=== PATIENT | female | born 1995 | race Caucasian/White ===

== ENCOUNTER → 2018-04-07 | Outpatient (CLI) | payer BC ==
--- NOTE | 2018-04-07 21:09 | CT ---
EXAMINATION TYPE: CT abdomen pelvis w con DATE OF EXAM: 04/07/2018 HISTORY: RUQ and Back pain CT DLP: 1721mGycm Automated Exposure Control for Dose Reduction was Utilized. CONTRAST: CT scan of the abdomen and pelvis is performed with oral and with IV Contrast, patient injected with 100 mL of Isovue 300. COMPARISON: FINDINGS: LUNG BASES: No significant abnormality is appreciated. LIVER/GB: Gallbladder is contracted in appearance likely on the basis of recent meal ingestion as the re is contrast and debris filled prominent stomach. PANCREAS: No significant abnormality is seen. SPLEEN: No significant abnormality is seen. ADRENALS: No significant abnormality is seen. KIDNEYS: No significant abnormality is seen. BOWEL: Oral contrast reaches the mid small bowel level making evaluation suboptimal. No suspicious sm all or large bowel dilatation is present. Cecum is somewhat low-lying in the right pelvis. Normal-gretchen earing appendix is seen from base of cecum in the right pelvis. UTERUS/ADNEXA: Anteverted uterus is present. Both ovaries are identified and normal in size. LYMPH NODES: No greater than 1cm abdominal or pelvic lymph nodes are appreciated. OSSEOUS STRUCTURES: No significant abnormality is seen. OTHER: Incidental metallic umbilical ornament. IMPRESSION: No significant acute finding is seen to account for patient's clinical symptoms.
== END ==
LOC: RADCTMAIN 17:06
PROVIDERS: ATTEND Internal Medicine Gastroenterology
DX: R10.10 Upper abdominal pain, unspecified (principal)
CPT/HCPCS: 74177; Q9967

== ENCOUNTER → 2019-11-23 | Outpatient (CLI) | payer BC ==
--- NOTE | 2019-11-23 13:24 | CT ---
EXAMINATION TYPE: CT abdomen wo con DATE OF EXAM: 11/23/2019 COMPARISON: 04/07/2018 HISTORY: 24-year-old female Upper abdominal pain x5 days TECHNIQUE: Contiguous axial scanning of the abdomen without IV contrast. Coronal and sagittal reconst ructions performed. CT DLP: 827.9 mGycm Automated exposure control for dose reduction was used. FINDINGS: Heart normal size without pericardial effusion. Lung bases clear without pleural effusion. Liver borderline in size at 17.1 cm. Otherwise, noncontrast appearance of the liver, gallbladder, adrenal glands, kidneys, and spleen with in normal limits. There is some inflammatory thickening of the body and tail of the pancreas with mild peripancreatic f at stranding. No abnormal fluid collection. Some mild streaky edema tracks down the left retroperiton eum anterior to the left kidney. No dilated small bowel, free fluid, or free air. No mesenteric or retroperitoneal lymphadenopathy. Normal appendix. No significant stool burden. No pericolic inflammatory change. Pelvis not imaged. Bones: No osseous destructive process. IMPRESSION: MILD ACUTE INTERSTITIAL PANCREATITIS INVOLVING THE PANCREATIC BODY AND TAIL. NO INTRAPANCREATIC OR PE RIPANCREATIC FLUID COLLECTION. THE TECHNOLOGIST WILL BE CALLING THE PHYSICIAN'S OFFICE TO ATTEMPT COM MUNICATION OF THE FINDINGS IMMEDIATELY FOLLOWING THE DICTATION.
== END | disposition home or self-care (01) ==
LOC: RADCTMAIN 10:34
PROVIDERS: ATTEND Family Medicine
DX: K85.80 Other acute pancreatitis without necrosis or infection (principal)
CPT/HCPCS: 74150

== ENCOUNTER → 2020-01-16 | Outpatient (CLI) | payer BC ==
[2020-01-17 10:35] LABS: IgG Subclass 3 65.9 mg/dL (11.0-85.0); IgG Subclass 4 72.4 mg/dL (3.0-175.0)
== END | disposition home or self-care (01) ==
LOC: LABWHC1 11:45
PROVIDERS: ATTEND Nurse Practitioner
DX: K85.90 Acute pancreatitis without necrosis or infection, unspecified (principal)
CPT/HCPCS: 36415; 82787; 84478; 86038

== ENCOUNTER → 2020-06-25 | Outpatient (CLI) | payer BC ==
--- NOTE | 2020-06-26 07:46 | MR ---
EXAMINATION TYPE: MR MRCP DATE OF EXAM: 06/25/2020 COMPARISON: CT abdomen November 23, [address] April 07, 2018. HISTORY: RUQ pain, pancreatitis Standard multiplanar, multisequence MRI departmental protocol Multiplanar, multisequence images of the abdomen were acquired. Thin and thick slice MRCP imaging per formed on the MRI scanner. FINDINGS: Liver/gallbladder/pancreas/biliary system: Gallbladder shows no intraluminal gallstones and appears u nremarkable. Liver remains normal in size. No concerning solid or cystic intrahepatic masses are iden tified. Pancreas shows overall marked diminished size from recent CT with interval improvement in shanta rounding fluid and fat stranding. There is actual mild generalized atrophy towards the distal body an d tail on MRI. No concerning solid or cystic pancreatic masses present. MRCP images show no suspiciou s intrahepatic or extrahepatic biliary dilatation. Pancreatic duct is nondilated and appears unremark able seen to the duodenal ampulla. Other: Lung bases are clear. The spleen and both adrenal glands remain within normal limits. There is no concerning renal mass or hydronephrosis. No suspicious bowel dilatation is seen. No abdominal asc ites. No greater than 1 cm abdominal adenopathy. Visualized osseous structures are intact. IMPRESSION: Interval resolution of enlargement and surrounding inflammatory change consistent with re solved acute pancreatitis. No suspicious underlying ductal abnormality. Fairly unremarkable MRI witho ut contrast study.
== END | disposition home or self-care (01) ==
LOC: RADMRIMAIN 20:48
PROVIDERS: ATTEND Surgery
DX: R10.11 Right upper quadrant pain (principal); K85.90 Acute pancreatitis without necrosis or infection, unspecified
CPT/HCPCS: 74181